=== PATIENT | male | born 1990 ===

== ENCOUNTER → 2017-03-24 | Outpatient (CLI) | payer OTHER ==
[~2017-03-24] MED LIST: HYDACE5 PO; IBUP800 PO; META800 PO; RXHYDACE PO
== END ==
LOC: LAB EV 15:02
DX: R50.9 Fever, unspecified (principal)
CPT/HCPCS: 87070; 87147

== ENCOUNTER → 2019-05-09 | Outpatient (CLI) | payer OTHER | END | disposition home or self-care (01) | LOC: LAB SHORT 13:52 → LAB EV 13:52 | DX: J02.9 Acute pharyngitis, unspecified (principal) | CPT/HCPCS: 87081 ==